=== PATIENT | male | born 1975 | race Caucasian/White ===

== ENCOUNTER 2021-03-26 15:52 | Outpatient (CLI) | payer SELFPAY | END 2021-03-26 15:53 | disposition critical access hospital (66) | LOC: EMS 15:52 | DX: R20.0 Anesthesia of skin (principal); R42 Dizziness and giddiness; R11.2 Nausea with vomiting, unspecified; R53.1 Weakness; R46.4 Slowness and poor responsiveness | CPT/HCPCS: A0425; A0427 ==

== ENCOUNTER 2021-03-26 16:03 | Emergency (ER) | payer SELFPAY ==
--- NOTE | 2021-03-26 16:18 | CT Report ---
PROCEDURE: Head W/O Stroke Protocol INDICATIONS: right sided weakness TECHNIQUE: Noncontrast 4.5 mm thick angled axial sections acquired from the foramen magnum to the vertex, with c oronal reformats. For radiation dose reduction, the following was used: automated exposure control, adjustment of mA and/or kV according to patient size. COMPARISON: FINDINGS: Image quality: Excellent. CSF spaces: Basal cisterns are patent. No extra-axial fluid collections. Ventricles are normal in size and shape. Brain: No midline shift. No intracranial masses or hemorrhage. Heaton-white matter interface is norm al. Skull and face: Calvarium and visualized facial bones are intact, without suspicious lesions. Sinuses: There is opacification of right maxillary sinus. Rest of the paranasal sinuses and mastoids are well aerated. IMPRESSION: 1. No CT evidence of acute intracranial abnormalities. 2. Suggestion of right maxillary sinusitis. This study fulfills neurological imaging criteria for inclusion or exclusion of acute stroke therapie s based on available published neurological imaging guidelines. Reviewed by: Ramiro Maza MD on 03/26/2021 4:17 PM PST Approved by: Ramiro Maza MD on 03/26/2021 4:17 PM PST Station ID: [id number]
--- NOTE | 2021-03-26 16:20 | ED Physician Documentation ---
PD HPI FOCAL NEURO - Stated complaint Stated Complaint: DIZZY/R SIDE WEAKNESS - History obtained from History obtained from: EMS - History of Present Illness Timing - onset: Enter time (299), Today Timing - duration: Hours Timing - details: Abrupt onset, Still present Severity of deficit: Moderate Weakness: Hand, Leg, Right Numbness: Hand, Right Associated symptoms: Headache, Other (weakness dizziness) Contributing factors: negative: Anticoagulated Baseline status: positive: A&OX3, ambulatory, indep Similar symptoms before: Has not had sx before Recently seen: Not recently seen - Additional information Additional information: Previously well 46-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 He woke up to go to the bathroom and had a difficult time getting to the bathroom with inability to ambulate. He felt dizzy with this. He went back to bed he slept most of the day. When he has gotten up here this afternoon and he still has weakness and dizziness. His weakness on the right side is not as apparent. He admits to a cough and congestion muffled hearing to the left side facial pain to the right side and a history of sinus infections and otitis. He is not immunized against COVID. Review of Systems Constitutional: reports: Fatigue. denies: Fever Eyes: denies: Decreased vision Ears: reports: Loss of hearing. denies: Ear pain Nose: reports: Rhinorrhea / runny nose, Congestion, Sinus pressure / pain Throat: denies: Sore throat Cardiac: denies: Chest pain / pressure, Palpitations Respiratory: reports: Cough. denies: Dyspnea GI: denies: Vomiting PD PAST MEDICAL HISTORY - Allergies Allergies/Adverse Reactions: Allergies Allergy/AdvReac Type Severity Reaction Status Date / Time No Known Drug Allergies Allergy Verified 03/26/21 16:22 PD ED PE NORMAL - Vitals Vital signs reviewed: Yes (hypertensive ) - General General: Other (Thin male wearing a mask eyes closed withdrawn. Response to verbal and follows commands.) - HEENT HEENT: Atraumatic, PERRL, EOMI, Other (Both TMs are markedly erythematous with indistinct landmarks the pharynx is with dry mucous membranes there is sinus point tenderness to the left maxillary sinus.) - Neck Neck: Supple, no meningeal sign, No bony TTP - Cardiac Cardiac: RRR, No murmur - Respiratory Respiratory: No respiratory distress, Clear bilaterally - Abdomen Abdomen: Normal bowel sounds, Soft, Non tender, Non distended, No organomegaly - Back Back: No CVA TTP, No spinal TTP - Derm Derm: Normal color, Warm and dry, No rash - Extremities Extremities: No deformity, No edema - Neuro Neuro: nursing director 2-12 intact, No motor deficit, No sensory deficit, Other (Quiet speech appropriate) Eye Opening: To Voice Motor: Obeys Commands Verbal: Oriented GCS Score: 14 - Psych Psych: Other (Mood is withdrawn the affect is flat and labile) NIHSS - Time Time: 16:20 - Level of Consciousness Level of consciousness: (1) Not alert, but arousable by minor stimulation to obey, or answer LOC Questions: (0) Answers both Q's correct LOC Commands: (0) Performs both correctly - Gaze Best Gaze: (0) Normal - Visual Visual: (0) No loss - Facial Palsy Facial Palsy: (0) Normal, symmetrical movement - Motor Arms (both separate) Motor Arm (right): (1) Drift Motor Arm (left): (0) No drift - Motor Legs (both separate) Motor Leg (right): (1) Drift Motor Leg (left): (0) No drift - Limb Ataxia Limb Ataxia: (2) Present in 2 limbs - Sensory Sensory: (1) Siry-zj-osupmmck loss - Best Language Best Language: (0) No aphasia - Dysarthria Dysarthria: (0) Normal - Extinction and Inattention (formally neg Extinction and inattention: (1) Visual,tactile,auditory,spatial, or personal inattention - Total Score/Results Total Score/Result: 7 Results - Vitals Vitals: Vital Signs - 24 hr 03/26/21 03/26/21 03/26/21 16:20 16:30 17:30 Temperature 36.4 C L Heart Rate 68 69 72 Respiratory 11 L 12 13 Rate Blood Pressure 134/103 H 124/91 H 130/89 H O2 Saturation 99 97 96 03/26/21 03/26/21 03/26/21 18:00 18:30 19:45 Temperature Heart Rate 85 87 92 Respiratory 11 L 12 11 L Rate Blood Pressure 117/88 H 127/99 H 137/109 H O2 Saturation 94 98 94 03/26/21 20:00 Temperature Heart Rate 88 Respiratory 14 Rate Blood Pressure 146/103 H O2 Saturation 94 Oxygen O2 Source Room air - EKG (time done) 1615 Rhythm: NSR [place]: RAD Ischemia: ST elevation c/w repol, Non specific changes Compare to prior EKG: Old EKG unavailable Computer interpretation: Agree with computer - Labs Labs: Laboratory Tests 03/26/21 03/26/21 03/26/21 16:22 16:22 16:22 WBC 11.5 H RBC 5.05 Hgb 15.1 Hct 45.1 MCV 89.3 MCH 29.9 MCHC 33.5 RDW 12.7 Plt Count 250 MPV 8.5 Neut # (Auto) 7.1 H Lymph # (Auto) 3.4 Cache # (Auto) 0.9 Eos # (Auto) 0.1 Baso # (Auto) 0.1 Absolute Nucleated RBC 0.00 Nucleated RBC % 0.0 PT 11.2 INR 1.0 Sodium 139 Potassium 3.6 Chloride 100 L Carbon Dioxide 29 Anion Gap 10.0 BUN 19 Creatinine 1.1 Estimated GFR (MDRD) 71 L Glucose 95 Calcium 8.9 Total Bilirubin 0.9 AST 16 ALT 13 Alkaline Phosphatase 62 Total Protein 7.1 Albumin 3.9 Globulin 3.2 Albumin/Globulin Ratio 1.2 Lipase 31 Urine Color Urine Clarity Urine pH Ur Specific [place] Urine Protein Urine Glucose (UA) Urine Ketones Urine Occult Blood Urine Nitrite Urine Bilirubin Urine Urobilinogen Ur Leukocyte Esterase Ur Microscopic Review Urine Culture Comments Nasal Adenovirus (PCR) Nasal B. parapertussis DNA (PCR) Nasal Coronavir 229E PCR Nasal Coronavir HKU1 PCR Nasal Coronavir NL63 PCR Nasal Coronavir OC43 PCR Nasal Enterovir/Rhinovir PCR Nasal Influenza B PCR Nasal Influenza A PCR Nasal Parainfluen 1 PCR Nasal Parainfluen 2 PCR Nasal Parainfluen 3 PCR Nasal Parainfluen 4 PCR Nasal RSV (PCR) Nasal B.pertussis DNA PCR Nasal C.pneumoniae (PCR) Axel Human Metapneumo PCR Nasal M.pneumoniae (PCR) Nasal SARS-CoV-2 (PCR) Urine Opiates Screen Ur Oxycodone Screen Urine Methadone Screen Ur Propoxyphene Screen Ur Barbiturates Screen Ur Tricyclics Screen Ur Phencyclidine Scrn Ur Amphetamine Screen U Methamphetamines Scrn U Benzodiazepines Scrn Urine Cocaine Screen U Cannabinoids Screen Ethyl Alcohol < 5.0 03/26/21 03/26/21 17:00 19:20 WBC RBC Hgb Hct MCV MCH MCHC RDW Plt Count MPV Neut # (Auto) Lymph # (Auto) Cache # (Auto) Eos # (Auto) Baso # (Auto) Absolute Nucleated RBC Nucleated RBC % PT INR Sodium Potassium Chloride Carbon Dioxide Anion Gap BUN Creatinine Estimated GFR (MDRD) Glucose Calcium Total Bilirubin AST ALT Alkaline Phosphatase Total Protein Albumin Globulin Albumin/Globulin Ratio Lipase Urine Color YELLOW Urine Clarity CLEAR Urine pH 6.0 Ur Specific [place] >=1.030 H Urine Protein NEGATIVE Urine Glucose (UA) NEGATIVE Urine Ketones NEGATIVE Urine Occult Blood NEGATIVE Urine Nitrite NEGATIVE Urine Bilirubin NEGATIVE Urine Urobilinogen 0.2 (NORMAL) Ur Leukocyte Esterase NEGATIVE Ur Microscopic Review NOT INDICATED Urine Culture Comments NOT INDICATED Nasal Adenovirus (PCR) NOT DETECTED Nasal B. parapertussis DNA (PCR) NOT DETECTED Nasal Coronavir 229E PCR NOT DETECTED Nasal Coronavir HKU1 PCR NOT DETECTED Nasal Coronavir NL63 PCR NOT DETECTED Nasal Coronavir OC43 PCR NOT DETECTED Nasal Enterovir/Rhinovir PCR NOT DETECTED Nasal Influenza B PCR NOT DETECTED Nasal Influenza A PCR NOT DETECTED Nasal Parainfluen 1 PCR NOT DETECTED Nasal Parainfluen 2 PCR NOT DETECTED Nasal Parainfluen 3 PCR NOT DETECTED Nasal Parainfluen 4 PCR NOT DETECTED Nasal RSV (PCR) NOT DETECTED Nasal B.pertussis DNA PCR NOT DETECTED Nasal C.pneumoniae (PCR) NOT DETECTED Axel Human Metapneumo PCR NOT DETECTED Nasal M.pneumoniae (PCR) NOT DETECTED Nasal SARS-CoV-2 (PCR) NOT DETECTED Urine Opiates Screen NEGATIVE Ur Oxycodone Screen NEGATIVE Urine Methadone Screen NEGATIVE Ur Propoxyphene Screen NEGATIVE Ur Barbiturates Screen NEGATIVE Ur Tricyclics Screen NEGATIVE Ur Phencyclidine Scrn NEGATIVE Ur Amphetamine Screen POSITIVE H U Methamphetamines Scrn POSITIVE H U Benzodiazepines Scrn NEGATIVE Urine Cocaine Screen NEGATIVE U Cannabinoids Screen NEGATIVE Ethyl Alcohol - Rads (name of study) CT head Radiology: Prelim report reviewed (Impression: 1. No CT evidence of acute intracranial abnormalities. Suggestion of right maxillary sinusitis), EMP read indepedently, See rad report Procedures - IVC sono (time) 1650 Bedside IVC sono: IVC measures (cm) (0.91), IVC collapsed c insp (cm) (comp lete), Dehydration (est 2 liter deficit) PD MEDICAL DECISION MAKING - ED course Complexity details: reviewed results, re-evaluated patient, considered differential, d/w patient, d/w family ED course: 46 y/o male with acute weakness and dizziness is evaluated at the bedside, an IV is begun, blood work is obtained, a CT of the head on stroke protocol is obtained and is without hemorrhage, his exam shows otitis bilaterally and he is symptomatic and has prior history of same. He has evidence of sinusitis on CT as well. We interrogated the IVC with the bedside ultrasound and found the patient to be significantly dehydrated on the order of 2 liters deficit. We began IV saline, administered IV decadron and ceftiraxone. He is not a candidate for thrombolysis as the time of onset is last night or unknown, his deficit is mild and he has improvement in the ED. He arrives to the ED with speech latency and delay in execution of motor commands. He was not able to participate with the exam adequately and the NIHSS is misrepresented on arrival. His score is 7 with deficits in strength and coordination in both upper and lower ext on the right, no facial droop and easy fatigue. He is much improved in his ability to cooperate and his deficit is more defined. He made a case for falling asleep on his arm and symptoms related to that but he has symptoms in the right leg as well and stroke is more likely. Angios of the head and neck are pending. At shift change care is turned over to Dr. Cristina. Tox screen + for amphetamine and methamphetamine. Departure - Departure Clinical Impression: Cerebrovascular accident (CVA) Qualifiers: CVA mechanism: unspecified Qualified Code(s): I63.9 - Cerebral infarction, unspecified
[2021-03-26 16:28] LABS: BASOPHILS # (AUTO) 0.1 10^3/uL (0.0-0.1); BASOPHILS % (AUTO) 0.5 %; EOSINOPHILS # (AUTO) 0.1 10^3/uL (0.0-0.7); EOSINOPHILS % (AUTO) 0.5 %; HCT - HEMATOCRIT 45.1 % (42.0-52.0); HGB - HEMOGLOBIN 15.1 g/dL (14.0-18.0); LYMPHOCYTES # (AUTO) 3.4 10^3/uL (1.5-3.5); LYMPHOCYTES % (AUTO) 29.2 %; MEAN CORPUSCULAR HEMOGLOBIN 29.9 pg (27.0-31.0); MEAN CORPUSCULAR HGB CONC 33.5 g/dL (32.0-36.0); MEAN CORPUSCULAR VOLUME 89.3 fL (80.0-94.0); MEAN PLATELET VOLUME 8.5 fL (7.4-11.4); MONOCYTES # (AUTO) 0.9 10^3/uL (0.0-1.0); MONOCYTES % (AUTO) 7.9 %; NEUTROPHILS # (AUTO) 7.1 10^3/uL (1.5-6.6); NEUTROPHILS % (AUTO) 61.6 %; PLT - PLATELET COUNT 250 10^3/uL (130-450); RED BLOOD COUNT 5.05 10^6/uL (4.70-6.10); RED CELL DISTRIBUTION WIDTH 12.7 % (12.0-15.0); WHITE BLOOD COUNT 11.5 x10^3/uL (4.8-10.8)
[2021-03-26 16:39] LABS: PT - PROTHROMBIN TIME 11.2 secs (9.9-12.6)
[2021-03-26] MEDS ORDERED: cefTRIAXone 1 GM in SODIUM CHLORIDE 0.9% MINIBAG 100 ML IV STA (16:43)
[2021-03-26] MEDS ORDERED: DEXAMETHASONE 10 MG/ML VIAL IVP STA (16:43)
[2021-03-26] MEDS ORDERED: SODIUM CHLORIDE 0.9% 1,000 ML IV STA (16:43)
[2021-03-26 16:44] LABS: ALBUMIN 3.9 g/dL (3.2-5.5); ALBUMIN/GLOBULIN RATIO 1.2 (1.0-2.2); ALKALINE PHOSPHATASE 62 IU/L (42-121); ALT ALANINE AMINOTRANSFERASE 13 IU/L (10-60); AST ASPARTATE AMINOTRANSFERASE 16 IU/L (10-42); BILIRUBIN,TOTAL 0.9 mg/dL (0.2-1.0); BUN - BLOOD UREA NITROGEN 19 mg/dL (6-20); CALCIUM 8.9 mg/dL (8.5-10.3); CARBON DIOXIDE - CO2 29 mmol/L (21-32); CHLORIDE 100 mmol/L (101-111); CREATININE 1.1 mg/dL (0.6-1.2); ETOH - ETHANOL < 5.0 mg/dL; GFR - MDRD 71 (>89); GLUCOSE 95 mg/dL (70-100); LIPASE 31 U/L (22-51); POTASSIUM 3.6 mmol/L (3.5-5.0); SODIUM 139 mmol/L (135-145); TOTAL PROTEIN 7.1 g/dL (6.7-8.2)
[2021-03-26 18:09] LABS: B. PARAPERTUSSIS- RESP PCR PAN NOT DETECTED; B. PERTUSSIS- RESP PCR PANEL NOT DETECTED; C. PNEUMONIAE- RESP PCR PANEL NOT DETECTED; CORONAVIRUS 229E-RESP PCR NOT DETECTED; CORONAVIRUS HKU1-RESP PCR NOT DETECTED; CORONAVIRUS NL63-RESP PCR NOT DETECTED; CORONAVIRUS OC43-RESP PCR NOT DETECTED; HUMAN METAPNEUMOVIRUS NOT DETECTED; INFLUENZA A- RESP PCR PANEL NOT DETECTED; INFLUENZA B - RESP PCR PANEL NOT DETECTED; M. PNEUMONIAE- RESP PCR PANEL NOT DETECTED; PARAINFLUENZA VIRUS 1 NOT DETECTED; PARAINFLUENZA VIRUS 2 NOT DETECTED; PARAINFLUENZA VIRUS 3 NOT DETECTED; PARAINFLUENZA VIRUS 4 NOT DETECTED; RHINOVIRUS/ENTEROVIRUS NOT DETECTED; RSV- RESP PCR PANEL NOT DETECTED; SARS-CoV-2 -RESP PCR PANEL NOT DETECTED
[2021-03-26] MEDS ORDERED: IOVERSOL 320 100 ML VIAL IVP ONE ×2 (18:52→19:46)
[2021-03-26 19:24] LABS: MUDS CUTOFF CONCENTRATIONS CUTOFF CONC BELOW:
[2021-03-26 19:30] LABS: BILIRUBIN,URINE NEGATIVE (NEGATIVE); GLUCOSE, URINE (UA) NEGATIVE (NEGATIVE); KETONES,URINE (UA) NEGATIVE (NEGATIVE); LEUKOCYTE ESTERASE, URINE NEGATIVE (NEGATIVE); NITRITE,URINE NEGATIVE (NEGATIVE); OCCULT BLOOD,URINE NEGATIVE (NEGATIVE); PROTEIN,URINE NEGATIVE (NEGATIVE); UROBILINOGEN,URINE 0.2 (NORMAL) E.U./dL (NORMAL)
[2021-03-26 19:32] LABS: CLARITY,URINE CLEAR (CLEAR)
[2021-03-26 19:52] LABS: AMPHETAMINE SCREEN,URINE POSITIVE (NEGATIVE); BARBITURATE SCREEN,UR NEGATIVE (NEGATIVE); BENZODIAZEPINES SCREEN, URINE NEGATIVE (NEGATIVE); COCAINE SCREEN URINE NEGATIVE (NEGATIVE); METHADONE SCREEN, URINE NEGATIVE (NEGATIVE); METHAMPHETAMINES SCREEN, URINE POSITIVE (NEGATIVE); OPIATE SCREEN, URINE NEGATIVE (NEGATIVE); OXYCODONE SCREEN, URINE NEGATIVE (NEGATIVE); PROPOXYPHENE SCREEN, URINE NEGATIVE (NEGATIVE); THC CANNABINOID SCREEN, URINE NEGATIVE (NEGATIVE); TRICYCLIC ANTIDEPRESSANT,URINE NEGATIVE (NEGATIVE)
[2021-03-26] MEDS ORDERED: ASPIRIN CHEW 81 MG TABLET PO STA (19:52)
--- NOTE | 2021-03-26 20:14 | CT Report ---
PROCEDURE: ANGIO HEAD W/WO INDICATIONS: right sided weakness CONTRAST: IV CONTRAST: Optiray 320 ml: 80 PO CONTRAST: *NO PO CONTRAST TECHNIQUE: Precontrast 4.5 mm thick angled axial sections acquired from the foramen magnum to the vertex. Afte r the administration of intravenous contrast, 1 mm thick sections acquired through the [place] of [place] is. Postcontrast 4.5 mm thick sections then re-acquired from the foramen magnum to the vertex. 3-di mensional fojvfsx-embqmkstb-xognijlowx (MIP) and/or volume rendering reformats were acquired of the c entral intracranial vasculature. For radiation dose reduction, the following was used: automated ex posure control, adjustment of mA and/or kV according to patient size. COMPARISON: None FINDINGS: Image quality: Excellent. Anterior circulation: Intracranial internal carotid arteries have minimal atherosclerotic calcificat ions but are normal in size and flow. The flow within the paired anterior cerebral arteries is gwyn l and symmetric. The flow within the middle cerebral arteries is normal and symmetric. The anterior communicating artery is seen. No aneurysms are seen. Posterior circulation: Visualized portions of the vertebral arteries demonstrate normal caliber, and join to form a normal appearing basilar artery. Flow within the posterior cerebral arteries is norm al and symmetric. No aneurysms are seen. CSF spaces: Ventricles are normal in size and shape. Basal cisterns are patent. No extra-axial flu id collections. Brain: No midline shift. No intracranial bleeds or masses. Heaton-white matter interface appears int act. Skull and face: Calvarium and facial bones appear intact, without suspicious lesions. Sinuses: Visualized sinuses and mastoids are clear. IMPRESSION: Normal CTA of the head. Reviewed by: Jorge L Blanchard on 03/26/2021 8:12 PM PST Approved by: Jorge L Blanchard on 03/26/2021 8:12 PM PST Station ID: [id number]
--- NOTE | 2021-03-26 20:19 | CT Report ---
PROCEDURE: ANGIO NECK W INDICATIONS: right sided weakness CONTRAST: IV CONTRAST: Optiray 320 ml: 80 PO CONTRAST: *NO PO CONTRAST TECHNIQUE: After the administration of intravenous contrast, 1.5 mm axial sections acquired from the aortic arch to the [place] of [place]. Coronal 3-D maximum intensity projection (MIP) and/or volume rendering ref ormats were then performed. For radiation dose reduction, the following was used: automated exposur e control, adjustment of mA and/or kV according to patient size. COMPARISON: None. FINDINGS: Image quality: Excellent. Carotid system: The great vessels demonstrate a conventional anatomy as they arise from the aortic a [facility]. The origins of the common carotid arteries appear patent. The common carotid arteries demonstr ate normal calibers and courses. The bifurcation regions have atherosclerotic calcifications bilater ally. The internal carotid arteries demonstrate normal caliber and course. Posterior circulation: The origins of the vertebral arteries appear patent. The more superior porti ons of the vertebral arteries demonstrate normal course and caliber. They join to form a normal appe aring basilar artery. Soft tissues: Visualized neck soft tissues demonstrate no suspicious abnormalities. The thyroid is normal in size and there are no incidental findings. Bones: No suspicious bony lesions. Visualized cervical spine appears normally aligned. IMPRESSION: 1. Atherosclerotic calcifications of the carotid bulbs bilaterally is unusual given patient age, saenz benjamin there is no significant stenosis. 2. No aneurysm or dissection. The estimate of stenosis included in the report of the imaging study was calculated using the NASCET method Reviewed by: Jorge L Blanchard on 03/26/2021 8:18 PM PST Approved by: Jorge L Blanchard on 03/26/2021 8:18 PM PST Station ID: [id number]
[2021-03-27 01:04] VITALS: BP 113/88
--- NOTE | 2021-03-27 02:13 | ED Physician Documentation ---
ED Addendum - Addendum Addendum: 03/27/21 02:10 Patient endorsed to me by Dr. Angel pending CTA reads, disposition. Patient tested positive for meth, has improving RUE /RLE weakness. he is R hand dominant. no other neuro deficits. patient woke in the middle of night saying he would like to go home and refusing further care. Risks of leaving AMA discussed. Patient has capacity to refuse care. RUE/RLE weakness appears to have resolved. he used his right hand to sign AMA paperwork and has full fine motor skills. A mbulatory on both legs without difficulty. strict return precautions discussed. Disposition AMA condition stable Impression 1. weakness 2. dizziness 3. methamphetamine abuse
== END 2021-03-27 02:33 | disposition left against medical advice (07) ==
LOC: EDBD → ED 16:03
DX: I63.9 Cerebral infarction, unspecified (principal); E86.0 Dehydration; F15.10 Other stimulant abuse, uncomplicated; Z20.822 Contact with and (suspected) exposure to COVID-19
CPT/HCPCS: 0202U; 36415; 70450; 70496; 70498; 80053; 80306; 80320; 81003; 83690; 85025; 85610; 93005; 96361; 96365; 96375; 99284; A9270; Q9967; 81001; 87086